=== PATIENT | female | born 1985 | race Caucasian/White ===

== ENCOUNTER 2019-03-09 07:24 | Inpatient (IN) | payer MEDICAID ==
[2019-03-09 08:14] LABS: ADD MAN DIFF? NO
[2019-03-09 08:19] LABS: BASOPHIL # 0.1 10^3/ul (0.0-0.1); BASOPHILS % 0.6 % (0.0-2.0); EOSINOPHILS # 0.1 10^3/ul (0.0-0.5); EOSINOPHILS % 1.4 % (0.0-7.0); HEMATOCRIT 34.8 % (37.0-47.0); HEMOGLOBIN 11.6 g/dl (12.0-16.0); LYMPHOCYTES # 2.2 10^3/ul (0.8-2.9); LYMPHOCYTES % 21.6 % (15.0-51.0); MEAN CORPUSCULAR HGB CONC 33.3 g/dl (32.0-37.0); MEAN CORPUSCULAR VOLUME 84.1 fl (82.0-101.0); MEAN PLATELET VOLUME 10.7 fl (7.4-10.4); MONOCYTE # 0.8 10^3/ul (0.3-0.9); MONOCYTES % 8.4 % (0.0-11.0); NEUTROPHIL # 6.7 10^3/ul (1.6-7.5); NEUTROPHILS % 67.1 % (39.0-77.0); PLATELET COUNT 295 10^3/UL (140-415); RED BLOOD COUNT 4.14 10^6/ul (4.20-5.40); RED CELL DISTRIBUTION WIDTH 14.4 % (11.5-14.5)
[2019-03-09] MEDS: LACTATED RINGER'S 1,000 ML IV (08:29)
[2019-03-09] MEDS ORDERED: OXYTOCIN 30 UNITS/LR 500 ML IV ×4 (08:30→10:30)
[2019-03-09] MEDS ORDERED: METHYLERGONOVINE 0.2 MG INJ IM ×2 (08:30→10:30)
[2019-03-09] MEDS ORDERED: CARBOPROST 250 MCG INJ IM ×2 (08:30→10:30)
[2019-03-09] MEDS ORDERED: MISOPROSTOL 200 MCG TAB PR ×2 (08:30→10:30)
[2019-03-09 08:37] LABS: INR 0.88; PARTIAL THROMBOPLASTIN TIME 26.3 Sec (23.0-35.0); PT RATIO 0.9
[2019-03-09] MEDS ORDERED: CEFAZOLIN 2 GM/50 ML (PMX) 50 ML IVPB ×3 (09:00→18:00)
[2019-03-09] MEDS ORDERED: METOCLOPRAMIDE 10 MG INJ (09:17)
[2019-03-09] MEDS ORDERED: morphine SULFATE/PF (10 MG/10 ML) INJ (09:17)
[2019-03-09] MEDS ORDERED: ONDANSETRON 4 MG INJ (09:17)
[2019-03-09] MEDS ORDERED: KETOROLAC 30 MG INJ (09:18)
[2019-03-09] MEDS ORDERED: PHENYLephrine 10 MG INJ (09:30)
[2019-03-09] MEDS ORDERED: CITRIC ACID/NA CITRATE 30 ML CUP PO (09:30)
[2019-03-09] MEDS ORDERED: NACL 0.9% 3 ML SYG IV (10:30)
[2019-03-09] MEDS ORDERED: LANOLIN HPA 1 PKT TOP (10:30)
[2019-03-09] MEDS ORDERED: OXYCODONE/ACETAMINOPHEN (5/325) TAB PO ×2 (10:30)
[2019-03-09] MEDS: IBUPROFEN 600 MG TAB PO ×3 (12:00→23:35)
[2019-03-09] MEDS: OXYTOCIN 30 UNITS/LR 500 ML IV ×3 (12:59→18:29)
[2019-03-09] MEDS ORDERED: NALOXONE (0.4 MG/ML) INJ IV (13:00)
[2019-03-09] MEDS ORDERED: DIPHENHYDRAMINE 50 MG INJ IV (13:00)
[2019-03-09] MEDS ORDERED: ONDANSETRON 4 MG INJ IV ×2 (13:00)
[2019-03-09] MEDS ORDERED: KETOROLAC 30 MG INJ IV (13:00)
[2019-03-09] MEDS ORDERED: morphine (1 MG/ML) 10ML SYRINGE IV ×3 (13:00)
[2019-03-09] MEDS ORDERED: morphine 2 MG INJ IV ×3 (13:00)
[2019-03-09 15:06] LABS: HEPATITIS B SURFACE ANTIGEN NEGATIVE (NEGATIVE)
[2019-03-09 16:55] LABS: RAPID PLASMA REAGIN NONREACTIVE (NR)
[2019-03-09] MEDS: CEFAZOLIN 2 GM/50 ML (PMX) 50 ML IVPB (17:28)
[2019-03-09] MEDS: SENNA/DOCUSATE NA (8.6MG/50MG) TAB PO (21:24)
[2019-03-10] MEDS: CEFAZOLIN 2 GM/50 ML (PMX) 50 ML IVPB ×3 (02:18→10:00)
[2019-03-10] MEDS: KETOROLAC 30 MG INJ IV ×2 (03:58→10:00)
[2019-03-10] MEDS: LACTATED RINGER'S 1,000 ML IV (04:35)
[2019-03-10] MEDS: IBUPROFEN 600 MG TAB PO ×3 (05:28→17:40)
[2019-03-10 08:10] LABS: ADD MAN DIFF? NO
[2019-03-10 08:14] LABS: BASOPHILS % 0.3 % (0.0-2.0); EOSINOPHILS # 0.1 10^3/ul (0.0-0.5); EOSINOPHILS % 0.5 % (0.0-7.0); HEMATOCRIT 28.7 % (37.0-47.0); HEMOGLOBIN 9.7 g/dl (12.0-16.0); LYMPHOCYTES # 1.3 10^3/ul (0.8-2.9); LYMPHOCYTES % 10.6 % (15.0-51.0); MEAN CORPUSCULAR HEMOGLOBIN 28.3 pg (29.0-33.0); MEAN CORPUSCULAR HGB CONC 33.8 g/dl (32.0-37.0); MEAN CORPUSCULAR VOLUME 83.7 fl (82.0-101.0); MEAN PLATELET VOLUME 10.8 fl (7.4-10.4); MONOCYTE # 0.7 10^3/ul (0.3-0.9); MONOCYTES % 5.6 % (0.0-11.0); NEUTROPHILS % 82.4 % (39.0-77.0); PLATELET COUNT 234 10^3/UL (140-415); RED BLOOD COUNT 3.43 10^6/ul (4.20-5.40); RED CELL DISTRIBUTION WIDTH 14.3 % (11.5-14.5)
[2019-03-10 08:14] LABS: WHITE BLOOD COUNT 12.1 10^3/ul (4.8-10.8)
[2019-03-10] MEDS: SENNA/DOCUSATE NA (8.6MG/50MG) TAB PO ×2 (10:00→21:18)
[2019-03-10] MEDS: FERROUS SULFATE (EC) 325 MG TAB PO (21:18)
[2019-03-11] MEDS: IBUPROFEN 600 MG TAB PO ×5 (00:07→23:43)
[2019-03-11] MEDS: FERROUS SULFATE (EC) 325 MG TAB PO ×2 (08:57→21:18)
[2019-03-11] MEDS: SENNA/DOCUSATE NA (8.6MG/50MG) TAB PO ×2 (08:58→21:18)
[2019-03-12] MEDS: IBUPROFEN 600 MG TAB PO (05:27)
[2019-03-12] MEDS: FERROUS SULFATE (EC) 325 MG TAB PO (09:36)
[2019-03-12] MEDS: SENNA/DOCUSATE NA (8.6MG/50MG) TAB PO (09:36)
== END 2019-03-12 11:50 | disposition home or self-care (01) | DRG 788 ==
LOC: L-D 07:24 → PP1 13:30
PROVIDERS: Obstetrics & Gynecology
PROC: 10D00Z1 Extraction of Products of Conception, Low, Open Approach (ICD-10-PCS; principal; 2019-03-09 09:00)
DX: O34.211 Maternal care for low transverse scar from previous cesarean delivery (principal); Z3A.39 39 weeks gestation of pregnancy; Z37.0 Single live birth
CPT/HCPCS: 85025; 85610; 85730; 86592; 86850; 86900; 86901; 87340; 99464